=== PATIENT | female | born 1980 | race African-American/Black ===

== ENCOUNTER 2019-03-15 22:02 | Emergency (ER) | payer SELFPAY ==
[~2019-03-15] VITALS: Ht 165.1 cm; Wt 136.0 kg
[2019-03-15] MEDS ORDERED: SODIUM CHLORIDE 0.9% 1,000 ML IV ONE (22:37)
[2019-03-15] MEDS ORDERED: ONDANSETRON HCL 4MG/2ML INJ IV STA (22:37)
[2019-03-15] MEDS ORDERED: MORPHINE SULFATE 4 MG/ML CPJ (NOT FOR IM USE) IV STA (22:37)
[2019-03-15 23:45] LABS: BASOPHILS % 0.6 % (0.0-2.0); EOSINOPHILS % 0.5 % (0.0-5.0); HEMOGLOBIN. 13.6 g/dL (12.0-16.0); LYMPHOCYTES % 17.7 % (20.0-50.0); MEAN CORPUSCULAR HEMOGLOBIN 26.6 pg (28.0-32.0); MEAN CORPUSCULAR VOLUME 80.2 fL (81.0-99.0); MEAN PLATELET VOLUME 8.9 fl (7.4-10.4); MONOCYTES % 4.9 % (2.0-8.0); NEUTROPHILS % 76.3 % (40.0-76.0); PLATELET 264 x1000/uL (130-400); RED BLOOD CELL COUNT 5.11 mill/uL (4.2-5.4); RED CELL DISTRIBUTION WIDTH 14.2 % (11.6-14.6)
[2019-03-15 23:48] LABS: CHLORIDE 111 mEq/L (98-107)
[2019-03-15 23:51] LABS: PROTHROMBIN TIME 10.6 sec (9.6-11.0)
[2019-03-16 00:03] LABS: HCG SCREEN NEGATIVE
[2019-03-16] MEDS ORDERED: IOHEXOL-350 100 ML BOTTLE ONE (02:39)
[2019-03-16] MEDS ORDERED: KETOROLAC 30MG/ML VIAL IV ONE (02:45)
[2019-03-16 03:59] VITALS: BP 121/71
== END 2019-03-16 04:01 | disposition home or self-care (01) ==
LOC: ER 22:02
DX: S82.002A Unspecified fracture of left patella, initial encounter for closed fracture (principal); W01.0XXA Fall on same level from slipping, tripping and stumbling without subsequent striking against object, initial encounter; Y93.01 Activity, walking, marching and hiking; Y92.89 Other specified places as the place of occurrence of the external cause; Y99.8 Other external cause status
CPT/HCPCS: 29505; 36415; 73560; 73706; 80053; 84703; 85025; 85610; 96374; 96375; 99284; J1885; J2270; J2405; J7030; L1830; Q9967